=== PATIENT | male | born 1940 | race Caucasian/White ===

== ENCOUNTER → 2018-10-14 16:18 | Outpatient (CLI) | payer MEDICARE, SELFPAY | PROVIDERS: PCP Internal Medicine; Visit Provider Internal Medicine | DX: R41.0 Disorientation, unspecified (principal); Z53.9 Procedure and treatment not carried out, unspecified reason ==

== ENCOUNTER 2018-11-05 09:05 | Observation (INO) | payer MEDICARE, OTHER, SELFPAY ==
[2018-11-05] VITALS (12 sets, daily range): BP systolic 107–174; BP diastolic 66–133; PULSE 89–122; RESP 15–22; TEMP 36.5–37.2; O2SAT 94–100; BMI 22.6
--- NOTE | 2018-11-05 09:15 | DI.CT.S_ITS ---
PROCEDURE: CT HEAD/BRAIN WO CON INDICATIONS: speech difficulty TECHNIQUE: Noncontrast 4.5 mm thick angled axial sections acquired from the foramen magnum to the vertex, with coronal and sagittal reformats. For radiation dose reduction, the following was used: automated exposure control, adjustment of mA and/or kV according to patient size. COMPARISON: None. FINDINGS: Image quality: Diagnostic. CSF spaces: Basal cisterns are patent. No extra-axial fluid collections. Marked enlargement of the ventricles is identified, which is more pronounced than the degree of parenchymal volume loss. There may be an arachnoid cyst along the central aspect of the posterior fossa. Brain: No midline shift. No intracranial masses or hemorrhage. Joiner-white matter interface is normal. Small foci of low attenuation are seen within the periventricular white matter of the supratentorial brain. A chronic area of ischemia involving the upper aspect of the right cerebellum appears to be present (image 56, series 4 and image 12, series 2). Skull and face: Calvarium and visualized facial bones are intact, without suspicious lesions. Sinuses: Visualized sinuses and mastoids are clear. IMPRESSION: 1. No acute intracranial hemorrhage. 2. Prominent enlargement of the ventricles is suspicious for normal pressure hydrocephalus and clinical correlation is recommended. 3. Mild chronic small vessel ischemic changes and mild parenchymal volume loss. Dictated by: Michael Lowery M.D. on 11/05/2018 at 8:39 Approved by: Michael Lowery M.D. on 11/05/2018 at 8:41
--- NOTE | 2018-11-05 09:20 | ED.NEUROSD ---
HPI - Neuro Symptoms/Deficit General Chief Complaint: Neuro Symptoms/Deficit Stated Complaint: mild stroke ? Time Seen by Provider: 11/05/18 09:08 Source: patient Mode of arrival: ambulatory Limitations: no limitations History of Present Illness HPI Narrative: Patient is a 78-year-old male with history of atrial fibrillation and mechanical valve on Coumadin presenting with symptoms concerning for stroke. He states he has had difficulty speaking since he woke up this morning around 7:00 a.m.. He lives with his who suffers from dementia his son checks in on him frequently. He was there last night and said he seemed normal however this morning he can tell that his speech is off. No weakness numbness or tingling. He does have a mild left facial droop. Related Data Home Medications Medication Instructions Recorded Confirmed carvedilol 25 mg tablet 25 mg PO BID 11/03/18 11/05/18 furosemide 20 mg tablet 20 mg PO .three times a week tab 11/03/18 11/05/18 lisinopril 2.5 mg tablet 2.5 mg PO DAILY 11/03/18 11/05/18 spironolactone 25 mg tablet 12.5 mg PO DAILY tab 11/03/18 11/05/18 warfarin 5 mg tablet 5 mg PO DAILY 11/03/18 11/05/18 Allergies Allergy/AdvReac Type Severity Reaction Status Date / Time No Known Drug Allergies Allergy Unverified 11/03/18 10:38 Review of Systems Review of Systems ROS Unobtainable: All systems reviewed & are unremarkable except as noted in HPI and below Constitutional Constitutional: Denies chills, Denies fever(s), Denies frequent falls, Denies lethargy and Denies weakness Eyes Eyes: Denies change in vision, Denies eye discharge, Denies irritation and Denies loss of vision Cardiovascular Cardiovascular: Denies chest pain, Denies irregular heart rhythm, Denies lightheadedness, Denies palpitations, Denies dyspnea, Denies dyspnea on exertion and Denies orthopnea Respiratory Respiratory: Denies cough, Denies dyspnea, Denies dyspnea on exertion and Denies wheezing Gastrointestinal Gastrointestinal: Denies abdominal pain, Denies change in bowel habits, Denies diarrhea, Denies nausea and Denies vomiting Genitourinary Genitourinary: Denies hematuria, Denies flank pain, Denies urinary incontinence and Denies urinary urgency Musculoskeletal Musculoskeletal: Denies back pain, Denies muscle weakness, Denies numbness and Denies tingling Neurologic Neurologic: Reports as per HPI, Reports abnormal speech, Denies frequent falls, Denies loss of vision, Denies numbness, Denies tingling and Denies weakness Endocrine Endocrine: Denies palpitations Allergic/Immunologic Allergic/Immunologic: Denies wheezing [facility] Social History Smoking Status: Never smoker Exam Initial Vital Signs Initial Vital Signs: Vital Signs Temperature 99 F 11/05/18 09:05 Pulse Rate 122 H 11/05/18 09:05 Respiratory Rate 18 11/05/18 09:05 Blood Pressure 148/98 H 11/05/18 09:05 Pulse Oximetry 100 11/05/18 09:05 GENERAL: Alert pleasant elderly male no acute distress HEENT: Head atraumatic,EOMI, pupils reactive, mild left facial droop CARDIOVASCULAR: Regular rate and rhythm without murmurs, rubs or gallops. RESPIRATORY: Breath sounds equal bilaterally, no wheezes rales or rhonchi. ABDOMEN: Soft, nontender. Normoactive bowel sounds all 4 quadrants. No guarding or rebound. EXTREMITIES: Normal range of motion, no clubbing or edema. Neurovascularly intact NEUROLOGICAL: Alert and oriented x4.Normal gait and speech. Cranial nerves II through XII grossly intact. Good [id number], good [id number], strength equal bilaterally, mild slurring of speech noted, sensation in tact to soft touch bilaterally, no visual changes, mild left SKIN: Warm, dry, no laceration, no petechiae, no rashes or lesions. Scores NIH Stroke Scale Level of Conciousness: Alert, keenly responsive Ask month/age: Answers one question correctly, intubated follow commands Open/close eyes, close hand: Performs both tasks correctly Best gaze horizontal: Normal Visual hunter: No visual loss Facial palsy: Minor paralysis, flattened nasolabial fold, asymmetry on smiling Left arm drift: No drift for full 10 sec Right arm drift: No drift for full 10 sec Left leg drift: No drift for full 10 sec Right leg drift: No drift for full 10 sec Limb ataxia: Absent Sensory on face/arms/legs: Normal, no sensory loss Best language: No aphasia, normal Dysarthria: Mild to mod,some slurring Extinction or inattention: No abnormality Total NIH Stroke scale score: 3 Course Orders Ordered: ED Orders 11/05/18 09:11 EKG-12 Lead Stat 11/05/18 09:15 CT head/brain wo con Stat Complete Blood Count AUTO DIFF Stat Comprehensive Metabolic Panel Stat Partial Thromboplastin Time Stat Prothrombin Time INR Stat Troponin I Stat Urine Drug Screen, Rapid Stat 11/05/18 10:21 XR chest 1V Stat Sodium Chloride (Normal Saline 0.9%) 1,000 mls @ 150 mls/hr IV CONT OSCAR Last Admin: 11/05/18 10:27 Dose: 150 mls/hr Documented by: BTONER Vital Signs Vital signs: Vital Signs - 8 hr 11/05/18 09:05 11/05/18 09:30 11/05/18 10:00 Temperature 99 F Pulse Rate 122 H 104 H 102 H Respiratory Rate 18 22 21 Blood Pressure 148/98 H Blood Pressure [Left Arm] 151/133 H 174/114 H Pulse Oximetry 100 97 98 11/05/18 10:30 Temperature Pulse Rate 100 H Respiratory Rate 21 Blood Pressure Blood Pressure [Left Arm] 109/76 Pulse Oximetry 98 MDM - Neuro Symptoms/Deficit Lab Data Attestation: I reviewed the patient's lab results. Result diagrams: 11/05/18 09:15 11/05/18 09:15 Labs: Lab Results 11/05/18 11/05/18 11/05/18 Range/Units 09:15 09:15 09:15 WBC 6.9 (4.5-11.0) X10^3/uL RBC 4.06 L (4.5-5.9) X10^6/uL Hgb 12.3 L (13.5-17.5) g/dL Hct 36.6 L (41-53) % MCV 90.3 (80-100) fL MCH 30.3 (26-34) PG MCHC 33.6 (30-36) % RDW 15.1 H (11.6-14.8) % Plt Count 259 (150-400) X10^3/uL Neut % (Auto) 63.6 (50-75) % Lymph % (Auto) 17.3 L (25-40) % [place] % (Auto) 10.1 (3-14) % Eos % (Auto) 7.7 H (2-4) % Baso % (Auto) 1.3 (0-2) % Neut # (Auto) 4400 (5984-6151) /uL Lymph # (Auto) 1200 (4641-3269) /uL [place] # (Auto) 700 (0-900) /uL Eos # (Auto) 500 H (0-450) /uL Baso # (Auto) 100 (0-100) /uL PT 32.5 H (10.1-12.7) SECONDS INR 2.8 H (0.9-1.3) APTT 44 H (26.4-36.2) SECONDS Sodium 137 (137-145) mmol/L Potassium 4.2 (3.4-5.1) mmol/L Chloride 98 (98-107) mmol/L Carbon Dioxide 27 (22-32) mmol/L BUN 24 H (9-20) mg/dL Creatinine 1.10 (0.66-1.25) mg/dL Estimated GFR > 60.0 (>60) mL/min BUN/Creatinine Ratio 21.8 (6-22) Glucose 116 H (80-110) mg/dL Calcium 9.7 (8.4-10.2) mg/dL Total Bilirubin 1.0 (0.2-1.3) mg/dL AST 29 (17-59) IU/L ALT 19 L (21-72) IU/L Alkaline Phosphatase 71 (38-126) U/L Troponin I < 0.012 (0.01-0.034) ng/mL Total Protein 8.3 H (6.3-8.2) g/dL Albumin 4.4 (3.5-5.0) g/dL Globulin 3.9 (1.7-4.1) g/dL Albumin/Globulin Ratio 1.1 (1.0-2.8) Urine Dip Bedside Urine Glucose Negative Bedside Urine Bilirubin - Negative Bedside Urine Ketone - Negative Urine Specific [place] 1.015 Bedside Urine Occult Blood - Negative Bedside Urine pH 6.5 Bedside Urine Protein - Negative Bedside Urine Urobilinogen - Negative Bedside Urine Nitrite - Negative Bedside Urine Leukocytes - Negative Esterase Imaging Data CT scan - head: Radiologist's impression: PROCEDURE: CT HEAD/BRAIN WO CON INDICATIONS: speech difficulty TECHNIQUE: Noncontrast 4.5 mm thick angled axial sections acquired from the foramen magnum to the vertex, with coronal and sagittal reformats. For radiation dose reduction, the following was used: automated exposure control, adjustment of mA and/or kV according to patient size. COMPARISON: None. FINDINGS: Image quality: Diagnostic. CSF spaces: Basal cisterns are patent. No extra-axial fluid collections. Marked enlargement of the ventricles is identified, which is more pronounced than the degree of parenchymal volume loss. There may be an arachnoid cyst along the central aspect of the posterior fossa. Brain: No midline shift. No intracranial masses or hemorrhage. Joiner-white matter interface is normal. Small foci of low attenuation are seen within the periventricular white matter of the supratentorial brain. A chronic area of ischemia involving the upper aspect of the right cerebellum appears to be present (image 56, series 4 and image 12, series 2). Skull and face: Calvarium and visualized facial bones are intact, without suspicious lesions. Sinuses: Visualized sinuses and mastoids are clear. IMPRESSION: 1. No acute intracranial hemorrhage. 2. Prominent enlargement of the ventricles is suspicious for normal pressure hydrocephalus and clinical correlation is recommended. 3. Mild chronic small vessel ischemic changes and mild parenchymal volume loss. Dictated by: Michael Lowery M.D. on 11/05/2018 at 8:39 Approved by: Michael Lowery M.D. on 11/05/2018 at 8:41 Chest x-ray: Radiologist's impression: PROCEDURE: XR CHEST 1V INDICATIONS: cva TECHNIQUE: One view of the chest was acquired. COMPARISON: None. FINDINGS: Surgical changes and devices: Median sternotomy changes are present with associated heart valve replacement Lungs and pleura: Vertical area of mild pulmonary consolidation is identified adjacent to the left heart border. No large area of consolidation is evident. Mild thickening of the minor fissure on the right is present. There is no significant pleural effusion. No definite pneumothorax is evident. Mediastinum: Mediastinal contours appear normal. The heart appears to be enlarged. There is aortic atherosclerosis. Bones and chest wall: No suspicious bony lesions. Overlying soft tissues appear unremarkable. IMPRESSION: 1. Cardiomegaly without overt heart failure. 2. Probable atelectasis within the medial left base. Please correlate clinically to exclude pneumonia. Dictated by: Michael Lowery M.D. on 11/05/2018 at 9:46 ECG Data Attestation: I personally reviewed and interpreted this ECG as follows: Prior ECG tracings: not available for review Interpretation: AFib rate [address] changes no T-wave inversions no priors to compare MDM Narrative Medical decision making narrative: Patient has signs and symptoms concerning for stroke Coumadin. He is not a candidate for an MRI due to mechanical valve. Head CT is negative for any hemorrhagic stroke. Dr. Montes updated patient's symptoms and test results agrees with observation. Discharge Plan Departure Patient Disposition: Admitted as Observation Clinical Impression: Cerebrovascular accident Qualifiers: CVA mechanism: unspecified Qualified Code(s): I63.9 - Cerebral infarction, unspecified Discharge Date/Time: 11/05/18 11:35 Admit Date/Time: 11/05/18 11:34 Admit Provider: Evie Montes
[2018-11-05 09:25] LABS: Add Manual Diff / Slide Review NO; Basophils Absolute Auto 100 /uL (0-100); Basophils Percent Auto 1.3 % (0-2); Eosinophils Absolute Auto 500 /uL (0-450); Eosinophils Percent Auto 7.7 % (2-4); Hematocrit 36.6 % (41-53); Hemoglobin 12.3 g/dL (13.5-17.5); Lymphocytes Absolute Auto 1200 /uL (1100-4500); Lymphocytes Percent Auto 17.3 % (25-40); Mean Corpuscular HGB Conc 33.6 % (30-36); Mean Corpuscular Hemoglobin 30.3 PG (26-34); Mean Corpuscular Volume 90.3 fL (80-100); Monocytes Absolute Auto 700 /uL (0-900); Monocytes Percent Auto 10.1 % (3-14); Neutrophils Absolute Auto 4400 /uL (1500-7000); Neutrophils Percent Auto 63.6 % (50-75); Platelet Count 259 X10^3/uL (150-400); Red Blood Cell Count 4.06 X10^6/uL (4.5-5.9); Red Cell Distribution Width 15.1 % (11.6-14.8); White Blood Cell Count 6.9 X10^3/uL (4.5-11.0)
[2018-11-05 09:30] LABS: INR 2.8 (0.9-1.3); Prothrombin Time 32.5 SECONDS (10.1-12.7)
[2018-11-05 09:32] LABS: PTT Partial Thromboplastin Tim 44 SECONDS (26.4-36.2)
[2018-11-05 09:34] LABS: Alanine Aminotransferase 19 IU/L (21-72); Albumin 4.4 g/dL (3.5-5.0); Albumin Globulin Ratio 1.1 (1.0-2.8); Alkaline Phosphatase 71 U/L (38-126); Aspartate Aminotransferase 29 IU/L (17-59); BUN Creatinine Ratio 21.8 (6-22); Blood Urea Nitrogen 24 mg/dL (9-20); Calcium 9.7 mg/dL (8.4-10.2); Carbon Dioxide 27 mmol/L (22-32); Chloride 98 mmol/L (98-107); Estimated Glomerular Filt Rate > 60.0 mL/min (>60); Globulin 3.9 g/dL (1.7-4.1); Glucose 116 mg/dL (80-110); HEMOLYSIS < 15 (0-50); Potassium 4.2 mmol/L (3.4-5.1); Sodium 137 mmol/L (137-145); Total Protein 8.3 g/dL (6.3-8.2)
[2018-11-05 09:45] LABS: Troponin I < 0.012 ng/mL (0.01-0.034)
--- NOTE | 2018-11-05 10:21 | DI.RAD.S_ITS ---
PROCEDURE: XR CHEST 1V INDICATIONS: cva TECHNIQUE: One view of the chest was acquired. COMPARISON: None. FINDINGS: Surgical changes and devices: Median sternotomy changes are present with associated heart valve replacement Lungs and pleura: Vertical area of mild pulmonary consolidation is identified adjacent to the left heart border. No large area of consolidation is evident. Mild thickening of the minor fissure on the right is present. There is no significant pleural effusion. No definite pneumothorax is evident. Mediastinum: Mediastinal contours appear normal. The heart appears to be enlarged. There is aortic atherosclerosis. Bones and chest wall: No suspicious bony lesions. Overlying soft tissues appear unremarkable. IMPRESSION: 1. Cardiomegaly without overt heart failure. 2. Probable atelectasis within the medial left base. Please correlate clinically to exclude pneumonia. Dictated by: Michael Lowery M.D. on 11/05/2018 at 9:46 Approved by: Michael Lowery M.D. on 11/05/2018 at 9:53
[2018-11-05] MEDS: SODIUM CHLORIDE 0.9% 1,000 ML 150 ML IV (10:27)
--- NOTE | 2018-11-05 12:36 | PC.NURSE ---
1205 Pt arrived from ED via stretcher. Pt is awake.\, alert, oriented to name , place, month. Pt has IVF infusing to R AC site. Pt speech is slightly slurred with some words. Pt is aware of his forgetfulness & slurred speech. Pt is calm, cooperative. strong rotary drier & pedal pushes. Pt s tongues goes to the Left side, mouth droop slight to right side. Pt usew a cane, has a very unsteady gait, risk of falls. 1220 Ptb voided per urinal with assist to stand, urine clear yello. IVF: NS 150 ml/hr . Pt denies Pain. Pts son Dirk at bedside, states he is the POA, Pt is a full code. Pt on Tele, ht rate 97-102.
--- NOTE | 2018-11-05 14:42 | P.HP_ITS ---
History of Present Illness History of Present Illness Date Patient Seen: 11/05/18 Chief complaint: mild stroke ? Narrative: The patient is a 78-year-old male with a history of congestive heart failure, paroxysmal atrial fibrillation, aortic valve replacement who lives at home with his who has dementia. The patient has 3 sons in the area who check on him daily. The patient got up this morning and noted his speech was abnormal. When his son appeared he was also noticing that his father speech was abnormal. Speech was somewhat garbled and difficult to understand. The patient had no weakness in the arms or legs. He denies any headache blurred vision or double vision. The son brought the patient into the emergency room for evaluation. In the emergency room his NIH SS score was 3. Patient by report had an episode 6 weeks ago where he became confused, had some mild slurring of his speech, all symptoms of which resolved after 10 minutes. He was seen by his primary care physician Dr. garcia evaluated and no further workup was indicated. Patient does have known paroxysmal atrial fibrillation, however according to the son he was in a regular rhythm most recently. He currently is undergoing a workup for possible obstructive sleep apnea. He has scheduled for sleep study next week. Patient has been noted to be hypoxic at night. In addition the patient has pulmonary edema. He does take Lasix 3 times weekly. Currently the patient is without complaints. He does have intermittent shortness of breath. He denies any chest pain. The patient is admitted to the hospital at this time for evaluation of possible CVA versus TIA. Patient History Medical History (Updated 11/05/18 @ 14:46 by Evie Montes MD) CAD (coronary artery disease) (Acute) History of implanted metallic device (Acute) Paroxysmal atrial fibrillation (Acute) Surgical History (Updated 11/05/18 @ 14:47 by Evie Montes MD) Hx of CABG (Acute) Family History (Updated 11/05/18 @ 14:47 by Evie Montes MD) Father Stroke Social History household members: spouse Smoking Status: Never smoker Family & Social History Family History (Updated 11/05/18 @ 14:47 by Evie Montes MD) Father Stroke Social History: household members spouse Prior Living Arrangements House Safety & Behavioral: Feels Safe in Current Yes Environment Been Physically Hurt or No Threatened By a Person Suicidal Ideation Description None Suicide Plan Description No Plan Tobacco & Substance use: Smoking Status Never smoker alcohol intake frequency other Substance Use Type does not use Meds Home Medications and Allergies Home Medications Medication Instructions Recorded Confirmed Type carvedilol 25 mg tablet 25 mg PO BID 11/03/18 11/05/18 History furosemide 20 mg tablet 20 mg PO .three times a week tab 11/03/18 11/05/18 History lisinopril 2.5 mg tablet 2.5 mg PO DAILY 11/03/18 11/05/18 History spironolactone 25 mg tablet 12.5 mg PO DAILY tab 11/03/18 11/05/18 History warfarin 5 mg tablet 5 mg PO DAILY 11/03/18 11/05/18 History Allergies Allergy/AdvReac Type Severity Reaction Status Date / Time No Known Drug Allergies Allergy Unverified 11/03/18 10:38 Review of Systems Review of Systems ROS Unobtainable: All systems reviewed & are unremarkable except as noted in HPI and below Exam Vital Signs (past 8 hours): - 11/05/18 09:05 11/05/18 09:30 11/05/18 10:00 Temperature 99 F Pulse Rate 122 H 104 H 102 H Respiratory Rate 18 22 21 Blood Pressure 148/98 H Blood Pressure [Left Arm] 151/133 H 174/114 H Pulse Oximetry 100 97 98 11/05/18 10:30 11/05/18 11:38 11/05/18 12:05 Temperature 98 F Pulse Rate 100 H 103 H 91 H Respiratory Rate 21 17 19 Blood Pressure 115/78 Blood Pressure [Left Arm] 109/76 107/74 Pulse Oximetry 98 94 98 Oxygen Delivery Method Room Air Narrative Exam Narrative: Pleasant elderly male resting comfortably in no obvious distress. Speech is dysarthric, NIH stroke scale 3 HEENT: Normocephalic atraumatic, sclera mildly icteric, extraocular muscles are intact, visual hunter normal to confrontation Neck is supple, Lungs: Clear to auscultation Cardiac exam: Irregularly irregular normal S1-S2 with a 3/6 systolic ejection murmur positive click Abdomen: Soft nontender nondistended Extremities: No edema Neuro exam: NIH stroke scale of 3, patient has mild left facial droop, dysarthria, no aphasia, strength is symmetric and equal, sensation is grossly intact, reflexes are brisk and equal, gait is not assessed Skin exam: No lesions noted Psychiatric exam: Patient is awake and appropriate Objective Labs Result Diagrams: 11/05/18 09:15 11/05/18 09:15 Labs: Laboratory Results - last 24 hr 11/05/18 11/05/18 11/05/18 09:15 09:15 09:15 WBC 6.9 RBC 4.06 L Hgb 12.3 L Hct 36.6 L MCV 90.3 MCH 30.3 MCHC 33.6 RDW 15.1 H Plt Count 259 Neut % (Auto) 63.6 Lymph % (Auto) 17.3 L [place] % (Auto) 10.1 Eos % (Auto) 7.7 H Baso % (Auto) 1.3 Neut # (Auto) 4400 Lymph # (Auto) 1200 [place] # (Auto) 700 Eos # (Auto) 500 H Baso # (Auto) 100 PT 32.5 H INR 2.8 H APTT 44 H Sodium 137 Potassium 4.2 Chloride 98 Carbon Dioxide 27 BUN 24 H Creatinine 1.10 Estimated GFR > 60.0 BUN/Creatinine Ratio 21.8 Glucose 116 H Calcium 9.7 Total Bilirubin 1.0 AST 29 ALT 19 L Alkaline Phosphatase 71 Troponin I < 0.012 Total Protein 8.3 H Albumin 4.4 Globulin 3.9 Albumin/Globulin Ratio 1.1 Assessment & Plan Assessment & Plan narrative: Impression 1. 78-year-old male with a history of mechanical valve replacement on Coumadin who presents to the hospital with abrupt onset of speech abnormalities. Patient has mild dysarthria but no evidence of dysphagia. Given his history of paroxysmal atrial fibrillation, mechanical valve replacement he is at high risk for embolic CVA. The patient cannot have an MRI given his mechanical valve. Would repeat head CT in 24-48 hours to evaluate for possible stroke. As the etiology is most likely involve who will defer carotid Doppler or CT angio of the neck. Patient will continue on Coumadin as there is no evidence of bleed on head CT. Will arrange for physical therapy occupational therapy and speech pathology consultation. Will start the patient on low-dose aspirin at 81 mg daily 2. Paroxysmal atrial fibrillation, currently in atrial fibrillation with a rate controlled. Patient has intermittently been in and out of AFib. For now as his rate is controlled will continue his Coreg. 3. Mechanical valve, continue Coumadin goal INR 2.5-3.5 4. Coronary disease, remote history of coronary artery bypass graft 5. 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 No evidence of heart failure. Given the patient most likely embolic event will obtain a cardiac echo to evaluate LV function and valvular status. Will continue Coreg furosemide lisinopril wan nolactone and Coumadin. Patient is a full code will note that his record accordingly. Anticipate di scharge home within 48 hours. Quality VTE Deep Vein Thrombosis/Pulmonary Embolism Present on Admission: No
--- NOTE | 2018-11-05 14:54 | DI.ECHO.S_ITS ---
[facility] +---------+ : : [address] : [place] [address] : : : : [id number] : : : : Phone: [phone]+ Echocardiogram Report + + :Name: JASMYN MCDANIEL Study Date: 11/07/2018 Height: 69 in : :[facility] Weight: 154 lb: : Gender: Male BSA: 1.8 m2 : :: 1940 Age: 78 yrs : :Reason For Study: CVA : : Performed By: Raina Still : :Referring: BLAISE JOSUE : + + Interpretation Summary Afib withheart rate 82-100 bpm. Normal LV size and wall thicknes. There is global hypokinesis. EF is estimated at 35-40%. There is severe LA enlargement; moderate-severe RA enlargement. Mitral valve leaflets are moderately calcificed. There is moderate MAC with moderate associated central MR. Aortic valve is replaced with a mechanical prosthesis; it is functioning normally. No evidence of PFO based on agitated saline study. Mildly dilated ascending aorta (measuring 4.4 cm diameter). Compared to prior study 06/19/2015 afib is new. cardiomyopathy is new. EF is down from 60-65% to 35-40%. Procedure: A two-dimensional transthoracic echocardiogram with color flow and Doppler was performed. The study quality was technically adequate. Comparison is made with the echocardiogram of 06-19-15. The patient was in atrial fibrillation with heart rates between 82-100 bpm during the exam. Left Ventricle: The left ventricle is normal in size. There is normal left ventricular wall thickness. The ejection fraction is estimated to be 35-40%. Diastolic function could not be accurately assessed due to atrial fibrillation. Right Ventricle: The right ventricle is mild to moderately dilated. Right ventricular systolic function is moderately reduced. Atria: The left atrium is severely dilated. The right atrium is moderate to severely dilated. Injection of contrast documented no interatrial shunt. Mitral Valve: The mitral valve leaflets are moderately calcified. There is moderate mitral annular calcification. There is moderate mitral regurgitation. Aortic Valve: There is a mechanical aortic valve. The prosthetic aortic valve is well-seated. There is trace aortic regurgitation. Tricuspid Valve: The tricuspid valve is normal in structure and function. There is trace tricuspid regurgitation. The right ventricular systolic pressure is estimated to be at least 28 mmHg based on an estimated right atrial pressure of 3 mm Hg. Pulmonic Valve: The pulmonic valve is not well seen, but is grossly normal. There is mild pulmonic regurgitation. Great Vessels: The aortic root is mildly dilated. The ascending aorta is mild-moderately enlarged. This is unchanged compared to the previous study. Inspiratory collapse cannot be assessed because of mechanical ventilation, thus CVP cannot be estimated.. Pericardium/ Pleura There is no pericardial effusion. There is no pleural effusion. MMode/2D Measurements & Calculations LVIDd: 4.4 cm LVOT diam: 2.3 cm LVIDs: 3.4 cm Ao root diam: 4.0 cm FS: 23.2 % Aortic Jxn: 3.3 cm EPSS: 2.1 cm asc Aorta Diam: 4.4 cm IVSd: 1.1 cm Ao Arch Diam (Prox Trans): 3.6 cm LVPWd: 0.66 cm LV leonardo. diameter/BSA (cm/m^2): 2.4 LV sys. diameter/BSA (cm/m^2): 1.8 LA dimension: 4.4 cm RA long axis: 6.0 cm LA A2 area: 42.2 cm2 RA area: 25.2 cm2 LA A4 area: 31.9 cm2 RA vol: 90.1 ml LA length (vol): 6.8 cm RA : 48.8 ml/m2 LA vol: 167.2 ml IVC diam: 1.9 cm LA vol index: 90.5 ml/m2 RVDd major: 6.1 cm RVD1 (basal): 4.2 cm RVD2 (mid): 3.8 cm Doppler Measurements & Calculations Ao V2 max: 137.1 cm/sec LVOT Max Alfred: 60.0 cm/sec Ao V2 mean: 78.8 cm/sec LV V1 max P.4 mmHg Ao max P.5 mmHg LV V1 VTI: 11.8 cm Ao mean P.2 mmHg NATHALIE(I,D): 2.0 cm2 Ao V2 VTI: 24.5 cm NATHALIE(V,D): 1.8 cm2 sev ratio: 0.48 NATHALIE indexed to BSA (cm^2/m^2): 1.1 Med Peak E' Alfred: 2.5 cm/sec TR max alfred: 248.6 cm/sec Lat Peak E' Alfred: 3.4 cm/sec TR max P.7 mmHg MV P1/2t: 107.9 msec PA V2 max: 50.1 cm/sec MVA(VTI): 1.1 cm2 PA V2 mean: 36.3 cm/sec PA mean P.58 mmHg PA Accel Time: 0.11 sec MV V2 mean: 111.2 cm/sec MV P1/2t max alfred: 196.3 cm/sec MV mean P.2 mmHg MVA(P1/2t): 2.0 cm2 MV V2 VTI: 45.6 cm SV(LVOT): 48.7 ml Electronically signed by: Melanie Hubbard M.D. on Reading Physician:11/07/2018 02:17 PM
[2018-11-05 15:29] LABS: PTT Partial Thromboplastin Tim 44 SECONDS (26.4-36.2)
[2018-11-05 15:49] LABS: INR 2.9 (0.9-1.3); Prothrombin Time 34.5 SECONDS (10.1-12.7)
[2018-11-05 17:13] LABS: Urine Amphetamines Negative (Negative); Urine Barbiturates Negative (Negative); Urine Benzodiazepines Negative (Negative); Urine Cocaine Negative (Negative); Urine MDMA Negative (Negative); Urine Methadone Negative (Negative); Urine Methamphetamines Negative (Negative); Urine Morphine/Opi cutoff 2000 Negative (Negative); Urine Oxycodone Negative (Negative); Urine Phencyclidine Negative (Negative); Urine Tetrahydrocannabinol Negative (Negative); Urine Tricyclic Antidepressant Negative (Negative)
--- NOTE | 2018-11-05 17:43 | PC.NURSE ---
Assumed care of pt at 1500. Pt resting in bed during bedside hand-off. Denies pain. Slurred speech noted. Pt up to chair for dinner. Coughing noted with eating, enc pt to double swallow and alternate drinks with food and remain upright after eating for aspiration prevention. Pt states he doesn't remember coughing prior to coming to the hospital. Using urinal to void. Returned to bed after dinner. Bed alarm placed on. Call light within reach.
[2018-11-05] MEDS: SENNOSIDES 8.6 MG TABLET 17.2 MG PO (21:24)
[2018-11-05] MEDS: DOCUSATE 100 MG CAPSULE PO (21:24)
[2018-11-05] MEDS: CARVEDILOL 25 MG TABLET PO (21:29)
[2018-11-06] VITALS (7 sets, daily range): BP systolic 109–129; BP diastolic 64–86; PULSE 93–103; RESP 16–18; TEMP 36.5–36.8; O2SAT 95–99
[2018-11-06 06:28] LABS: Cholesterol 195 mg/dL (140-199); HDL Cholesterol 32 mg/dL (40-60); LDL Cholesterol Calculated 140 mg/dL (<100); Triglycerides 114 mg/dL (35-150)
--- NOTE | 2018-11-06 06:56 | PC.NURSE ---
Pt with no further neuro changes overnight. NIH score of 4. Pt unable to repeat back one of the words mama. Speech slurred, but unchanged from baseline assessment during bedside report. Monitoring for neuro CVA changes.
--- NOTE | 2018-11-06 08:05 | P.PN_ITS ---
Subjective Subjective Date Patient Seen: 11/06/18 Interval history: He is seen today to follow-up his atrial fibrillation, coronary artery disease, new stroke, cardiomyopathy. 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 His speech rapidly becomes more slurred but is not slurred when he 1st starts talking. This is a great improvement. His tongue deviates very far to the left. He is undergoing PT/OT/speech evaluations today. His LDL is 140 with cholesterol of 195. Exam Vital Signs (past 8 hours): - 11/06/18 03:26 Temperature 97.7 F Pulse Rate 93 H Respiratory Rate 18 Blood Pressure 109/64 Pulse Oximetry 97 Oxygen Delivery Method Room Air Oxygen Flow Rate 0 Narrative Exam Narrative: He is alert and oriented x3. He is in no apparent distress. Heart is irregularly irregular with a mechanical click. Lungs are clear to auscultation bilaterally. Extremities have no ankle edema. Skin with xerosis on both legs. Neuro exam tongue deviates to the left. Speech is slurred. No facial droop visible. Equal last pattern grader strength. Equal lower extremity strength. He is able to walk and balance with PT assistance quite well. Objective Labs Result Diagrams: 11/05/18 09:15 11/05/18 09:15 Labs: Laboratory Results - last 24 hr 11/05/18 11/05/18 11/05/18 09:15 09:15 09:15 WBC 6.9 RBC 4.06 L Hgb 12.3 L Hct 36.6 L MCV 90.3 MCH 30.3 MCHC 33.6 RDW 15.1 H Plt Count 259 Neut % (Auto) 63.6 Lymph % (Auto) 17.3 L Anderson % (Auto) 10.1 Eos % (Auto) 7.7 H Baso % (Auto) 1.3 Neut # (Auto) 4400 Lymph # (Auto) 1200 Anderson # (Auto) 700 Eos # (Auto) 500 H Baso # (Auto) 100 PT 32.5 H INR 2.8 H APTT 44 H Sodium 137 Potassium 4.2 Chloride 98 Carbon Dioxide 27 BUN 24 H Creatinine 1.10 Estimated GFR > 60.0 BUN/Creatinine Ratio 21.8 Glucose 116 H Calcium 9.7 Total Bilirubin 1.0 AST 29 ALT 19 L Alkaline Phosphatase 71 Troponin I < 0.012 Total Protein 8.3 H Albumin 4.4 Globulin 3.9 Albumin/Globulin Ratio 1.1 Triglycerides Cholesterol LDL Cholesterol, Calc HDL Cholesterol Urine Opiates Screen Ur Oxycodone Screen Urine Methadone Screen Ur Barbiturates Screen U Tricyclic Antidepress Ur Phencyclidine Scrn Ur Amphetamines Screen U Methamphetamines Scrn Ur MDMA Scrn (Ecstasy) U Benzodiazepines Scrn Urine Cocaine Screen U Marijuana (THC) Screen 11/05/18 11/05/18 11/05/18 15:16 15:16 16:58 WBC RBC Hgb Hct MCV MCH MCHC RDW Plt Count Neut % (Auto) Lymph % (Auto) Anderson % (Auto) Eos % (Auto) Baso % (Auto) Neut # (Auto) Lymph # (Auto) Anderson # (Auto) Eos # (Auto) Baso # (Auto) PT 34.5 H INR 2.9 H APTT 44 H Sodium Potassium Chloride Carbon Dioxide BUN Creatinine Estimated GFR BUN/Creatinine Ratio Glucose Calcium Total Bilirubin AST ALT Alkaline Phosphatase Troponin I Total Protein Albumin Globulin Albumin/Globulin Ratio Triglycerides Cholesterol LDL Cholesterol, Calc HDL Cholesterol Urine Opiates Screen Negative Ur Oxycodone Screen Negative Urine Methadone Screen Negative Ur Barbiturates Screen Negative U Tricyclic Antidepress Negative Ur Phencyclidine Scrn Negative Ur Amphetamines Screen Negative U Methamphetamines Scrn Negative Ur MDMA Scrn (Ecstasy) Negative U Benzodiazepines Scrn Negative Urine Cocaine Screen Negative U Marijuana (THC) Screen Negative 11/06/18 05:50 WBC RBC Hgb Hct MCV MCH MCHC RDW Plt Count Neut % (Auto) Lymph % (Auto) Anderson % (Auto) Eos % (Auto) Baso % (Auto) Neut # (Auto) Lymph # (Auto) Anderson # (Auto) Eos # (Auto) Baso # (Auto) PT INR APTT Sodium Potassium Chloride Carbon Dioxide BUN Creatinine Estimated GFR BUN/Creatinine Ratio Glucose Calcium Total Bilirubin AST ALT Alkaline Phosphatase Troponin I Total Protein Albumin Globulin Albumin/Globulin Ratio Triglycerides 114 Cholesterol 195 LDL Cholesterol, Calc 140 H HDL Cholesterol 32 L Urine Opiates Screen Ur Oxycodone Screen Urine Methadone Screen Ur Barbiturates Screen U Tricyclic Antidepress Ur Phencyclidine Scrn Ur Amphetamines Screen U Methamphetamines Scrn Ur MDMA Scrn (Ecstasy) U Benzodiazepines Scrn Urine Cocaine Screen U Marijuana (THC) Screen Assessment & Plan Assessment & Plan narrative: 1. 78-year-old male with a history of mechanical valve replacement on Coumadin who presents to the hospital with abrupt onset of speech abnormalities. Patient has mild dysarthria but no evidence of dysphagia. Given his history of paroxysmal atrial fibrillation, mechanical valve replacement he is at high risk for embolic CVA. The patient cannot have an MRI given his mechanical valve. Will repeat CT brain tomorrow to evaluate for possible stroke. As the etiology is most likely embolic we will defer carotid Doppler or CT angio of the neck. Patient will continue on Coumadin as there is no evidence of bleed on head CT. Will arrange for physical therapy occupational therapy and speech pathology consultation. Will start the patient on low-dose aspirin at 81 mg daily 2. Paroxysmal atrial fibrillation, currently in atrial fibrillation with a rate controlled. Patient has intermittently been in and out of AFib. For now as his rate is controlled will continue his Coreg. 3. Mechanical valve, continue Coumadin goal INR 2.5-3.5 4. Coronary disease, remote history of coronary artery bypass graft 5. 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 No evidence of heart failure. Given the patient most likely embolic event will obtain a cardiac echo to evaluate LV fu nction and valvular status. Will continue Coreg furosemide lisinopril spironolactone and Coumadin. 6. Hyperlipidemia. Total cholesterol of 195 with LDL of 140. Begin atorvastatin. Patient is a full code. Anticipate discharge home within 48 hours. Quality VTE Deep Vein Thrombosis/Pulmonary Embolism Present on Admission: No
[2018-11-06] MEDS: DOCUSATE 100 MG CAPSULE PO ×2 (09:49→21:23)
[2018-11-06] MEDS: LISINOPRIL 5 MG TABLET 2.5 MG PO (09:49)
[2018-11-06] MEDS: CARVEDILOL 25 MG TABLET PO ×2 (09:50→21:23)
[2018-11-06] MEDS: SPIRONOLACTONE 25 MG TABLET 12.5 MG PO (09:51)
[2018-11-06] MEDS: ASPIRIN EC 81 MG TABLET PO (09:51)
[2018-11-06] MEDS: SODIUM CHLORIDE 0.9% FLUSH 10 ML IV ×3 (09:52→22:09)
--- NOTE | 2018-11-06 12:09 | PT.IIE ---
Surgical History (Last Updated 11/05/18 @ 14:47 by Evie Montes MD) Hx of CABG (Acute) Medical History (Last Updated 11/05/18 @ 14:46 by Evie Montes MD) CAD (coronary artery disease) (Acute) History of implanted metallic device (Acute) Paroxysmal atrial fibrillation (Acute) Physical Therapy Inpatient Evaluation/Re-Eval M1 PT/OT-IP Prior Functional Status Start: 11/06/18 09:01 Freq: NEEDED Status: Active Protocol: Document 11/06/18 11:20 AW (Rec: 11/06/18 12:08 AW [id number]) Medical Review Prior Functional Status Medical History Reviewed Yes Diet/Fluid Consistency Regular Communication Pt able to make needs known Mobility and Gait Pt was mod independent with heavy use of SPC for home and community distances. Activities of Daily Living and IADL's Pt was independent with all ADL's. Adult sons have been managing medications for approximately the past six weeks. Sons have been driving. Prior Functional Level (Other details) Pt's son, Bladimir, reports pt experiencing challenges with short term memory for the past 6 weeks. Social History Household Members spouse Living Arrangements House Number of Floors (Floors) Two Floors Number of Stairs To Enter/Railing? 5 CORNEL[place] with R rail ascending. 13 steps inside from main level to second floor. Pt accesses second floor regularly. 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 They both live locally and have been checking on pt and his spouse daily due to recent concerns for pt's short term memory. Pt lives with his spouse who has dementia. M2 PT-IP Current Condition Start: 11/06/18 09:01 Freq: NEEDED Status: Active Protocol: Document 11/06/18 11:20 AW (Rec: 11/06/18 12:08 AW [id number]) Physical Therapy Current Condition Current Condition Evaluation Date 11/06/18 Treatment Diagnosis speech abnormality, balance, TIA vs CVA Onset Date 11/05/18 Weight Bearing Status Weight Bearing Status Full Weight Bearing M3 PT-IP Subjective Start: 11/06/18 09:01 Freq: NEEDED Status: Active Protocol: Document 11/06/18 11:20 AW (Rec: 11/06/18 12:08 AW [id number]) Subjective Physical Therapy Visit Type Type Initial Evaluation Visit Start Time 10:42 Visit Stop Time 11:15 Total Visit Minutes 33 Number of BUTTON MAKER Visits 0 Physical Therapy Visit Comments Patient Comments Pt feels he is functioning typically other than slurred speech. Patient Goals Delvis would like to return home as soon as possible Therapy Pain Assessment Pain When Pain Assessed At Rest Pain Present Pain Present Denied Pain M4 PT-IP Mobility and Gait Start: 11/06/18 09:01 Freq: NEEDED Status: Active Protocol: Document 11/06/18 11:20 AW (Rec: 11/06/18 12:08 AW [id number]) PT-Transfer Assessment Sit to and From Stand Sit to and from Stand Standby Assistance Equipment Transfer Assistive Device Gait Belt,Front Wheeled Walker Transfers Transfer Destination Chair Transfer Technique Stand Step Pivot Transfer Ability Level of Assist Standby Assistance Comments Mobility Comments Pt was first encountered sitting in a chair. Transfer to standing using FWW required SBA. Gait Assessment Gait Gait Assistance Required: Standby Assistance,Contact Guard Assist Able to Maintain Weight Bearing Status Yes During Gait Assistive Devices Assistive Device Gait Belt,Straight Cane,Front Wheeled Walker Orthotic/Prosthetic Devices or Brace: No Gait Deviations General Gait Pattern Decreased Feet Clearance,Wide Based Gait Factors Limiting Gait Function Factors Limiting Gait Function Poor Balance,Poor Safety Awareness Comments Gait Comments Pt ambulated ~150 feet using FWW SBA. Also trialed ambulation with SPC which is typical for pt at baseline. With SPC, pt required CGA/SBA, demonstrating decreased balance and increased wide- based gait pattern. Pt's son, Bladimir, stated ambulation was consistent with baseline PT-Balance Assessment Sitting Balance and Reactions Static Sitting Balance Ability Good Dynamic Sitting Balance Ability Good Standing Balance and Reactions Static Standing Balance Ability Fair Dynamic Standing Balance Ability Fair Device Used FWW Comments Other Balance Tests/Deviations/Treatment Posterior loss of balance with : perturbations. Unable to assume or hold tandem stance without assistance. During ambulation, pt able to turn head right and left, but head nodding resulted in reduced gait speed and path deviation. M5 PT-IP Objective Assessments Start: 11/06/18 09:01 Freq: NEEDED Status: Active Protocol: Document 11/06/18 11:20 AW (Rec: 11/06/18 12:08 AW [id number]) Orientation Orientation/Cognition Level of Alertness Alert Orientation Name,Birthday,Place,Situation Language Function Ability Garbled Speech Safety Awareness Decreased Safety Awareness Memory Description Short Term Impaired Comments Short-term memory impaired per son visiting in room. Speech is slurred with onset ~24 hours ago, improving minimally . Gross Range of Motion Upper Extremity ROM Assessment Within Functional Limits Lower Extremity ROM Assessment Within Functional Limits Strength Upper Extremity Strength Assessment Within Functional Limits Lower Extremity Strength Assessment Within Functional Limits Coordination Assessment Gross Coordination Gross Coordination Impaired Assessment Finger to Nose Test Minimal Impairment Heel on Badillo Test Normal Performance Coordination Comments Slight dysmetria noted on finger to nose testing of the LUE with decreased speed and slight difficulty landing on target. Sensation Assessment Sensation Gross Sensation Right LE Impaired,Left LE Impaired Light Touch Impaired Comments Sensation Comments With eyes closed, pt unable to report light touch in stocking distribution up to proximal tibia. Muscle Tone Muscle Tone WNL Yes M6 PT-IP Treatment Start: 11/06/18 09:01 Freq: NEEDED Status: Active Protocol: Document 11/06/18 11:20 AW (Rec: 11/06/18 12:08 AW [id number]) Physical Therapy Treatment Education Education Provided Safety M7 PT-IP Assessment and Plan Start: 11/06/18 09:01 Freq: NEEDED Status: Active Protocol: Document 11/06/18 11:20 AW (Rec: 11/06/18 12:08 AW [id number]) PT Summary Assessment and Plan Potential Rehabilitation Potential Good Status of Condition at Evaluation Evolving Summary Impairments Balance,Transfers,Gait Assessment Summary Delvis is a 78 yo man admitted with stroke-like symptoms. He has a history of a fib, mechanical heart valve, and peripheral neuropathy affecting lower extremities. PLOF: Pt was modified independent, using a SPC for ambulation in household and community distances. He was independent with ADL's but his sons have been driving for him for the past 6 weeks. He reports just one fall in the last year; he was not injured. Adult children have been checking on him more frequently recently due to short term memory challenges and have been managing his medications. CLOF: Pt required SBA for transfers and gait with FWW. Gait with SPC required increased level of assist due to poor dynamic balance, but his son reports gait observed in therapy is consistent with pt's baseline. Pt has left tongue deviation and right-sided facial droop, slight dysmetria of left upper extremity, no pronator drift, no unilateral weakness. PT recommending discharge to home with increased usp care and outpatient physical therapy to address concerns with balance when medically cleared. Goals Bed Mobility Goal Independent Transfer Goal Independent Gait Goal Independent Gait Distance 500 Other Goals Pt will ascend/descend 13 steps SBA using R rail Frequency of Treatment Frequency Of Treatment Twice a Day Treatment Plan Physical Therapy Treatment Plan Transfer Training,Gait Training,Therapeutic Exercise, Balance Retraining,Discharge Planning,Neuromuscular Re-ed, Coordination Retraining,Manual Therapy Other Recommendations and Next Treatment focus on ambulation with least Focus restrictive assistive device and stairs Recommendations To Nursing Amount of Assist Needed Standby Assistance,1 Person Assist Discharge Recommendations PT Discharge Recommendations Home with Assistance, Outpatient PT
--- NOTE | 2018-11-06 14:26 | PT.IPTN ---
Physical Therapy Treatment Note M2 PT-IP Current Condition Start: 11/06/18 09:01 Freq: NEEDED Status: Active Protocol: Document 11/06/18 11:20 AW (Rec: 11/06/18 12:08 AW [id number]) Physical Therapy Current Condition Current Condition Evaluation Date 11/06/18 Treatment Diagnosis speech abnormality, balance, TIA vs CVA Onset Date 11/05/18 Weight Bearing Status Weight Bearing Status Full Weight Bearing M3 PT-IP Subjective Start: 11/06/18 09:01 Freq: NEEDED Status: Active Protocol: Document 11/06/18 14:11 CLB (Rec: 11/06/18 15:06 CLB [id number]) Subjective Physical Therapy Visit Type Type Treatment Note Visit Start Time 14:11 Visit Stop Time 14:26 Total Visit Minutes 15 Number of CLINICAL BUSINESS MANAGER Visits 1 Physical Therapy Visit Comments Patient Comments Pt willing to participate in therapy. M4 PT-IP Mobility and Gait Start: 11/06/18 09:01 Freq: NEEDED Status: Active Protocol: Document 11/06/18 14:11 CLB (Rec: 11/06/18 15:06 CLB [id number]) PT-Transfer Assessment Equipment Transfer Assistive Device Gait Belt,Front Wheeled Walker Transfers Transfer Destination Chair Transfer Technique Stand Step Pivot Transfer Ability Level of Assist Standby Assistance Gait Assessment Gait Gait Assistance Required: Standby Assistance,Contact Guard Assist Able to Maintain Weight Bearing Status Yes During Gait Assistive Devices Assistive Device Gait Belt,Straight Cane,Front Wheeled Walker Orthotic/Prosthetic Devices or Brace: No Gait Deviations General Gait Pattern Decreased Feet Clearance,Wide Based Gait Factors Limiting Gait Function Factors Limiting Gait Function Poor Balance,Poor Safety Awareness Comments Gait Comments Pt ambulated ~425ft. Pt started walking with walker then pt ambulated with cane. Pt required SBA with walker and CGA with cane and verbal cues for pacing especially while turning corners. Stair Climbing Assessment Evaluation Level of Assist On Stairs Standby Assistance,Contact Guard Assistance Devices Stair Climbing Assistive Devices Right Railing Technique/Endurance Stair Climbing Direction Ascend and Descend Stair Climbing Technique Step Over Step Number of Steps Climbed 3 Stair Climbing Set # Repetitions (reps) 4 Comments Stair Climbing Comments Pt able to climb stairs with right rail SBA-CGA. M5 PT-IP Objective Assessments Start: 11/06/18 09:01 Freq: NEEDED Status: Active Protocol: Document 11/06/18 11:20 AW (Rec: 11/06/18 12:08 AW [id number]) Orientation Orientation/Cognition Level of Alertness Alert Orientation Name,Birthday,Place,Situation Language Function Ability Garbled Speech Safety Awareness Decreased Safety Awareness Memory Description Short Term Impaired Comments Short-term memory impaired per son visiting in room. Speech is slurred with onset ~24 hours ago, improving minimally . Gross Range of Motion Upper Extremity ROM Assessment Within Functional Limits Lower Extremity ROM Assessment Within Functional Limits Strength Upper Extremity Strength Assessment Within Functional Limits Lower Extremity Strength Assessment Within Functional Limits Coordination Assessment Gross Coordination Gross Coordination Impaired Assessment Finger to Nose Test Minimal Impairment Heel on Badillo Test Normal Performance Coordination Comments Slight dysmetria noted on finger to nose testing of the LUE with decreased speed and slight difficulty landing on target. Sensation Assessment Sensation Gross Sensation Right LE Impaired,Left LE Impaired Light Touch Impaired Comments Sensation Comments With eyes closed, pt unable to report light touch in stocking distribution up to proximal tibia. Muscle Tone Muscle Tone WNL Yes M6 PT-IP Treatment Start: 11/06/18 09:01 Freq: NEEDED Status: Active Protocol: Document 11/06/18 11:20 AW (Rec: 11/06/18 12:08 AW [id number]) Physical Therapy Treatment Education Education Provided Safety M7 PT-IP Assessment and Plan Start: 11/06/18 09:01 Freq: NEEDED Status: Active Protocol: Document 11/06/18 14:11 CLB (Rec: 11/06/18 15:06 CLB [id number]) PT Summary Assessment and Plan Summary Assessment Summary Pt able to ambulate in burgess with cane ~350ft CGA with cues for pacing and during turns for safety. Pt improved with balance and stance during gait with cane. Pt able to climb 12 steps with R rail SBA-CGA. After speaking with PT oJy pt is appropriate to be seen by therapy once a day. Goals Bed Mobility Goal Independent Transfer Goal Independent Gait Goal Independent Gait Distance 500 Other Goals Pt will ascend/descend 13 steps SBA using R rail Frequency of Treatment Frequency Of Treatment Once a Day Treatment Plan Other Recommendations and Next Treatment ambulation with least Focus restrictive device. Recommendations To Nursing Amount of Assist Needed Standby Assistance,1 Person Assist Discharge Recommendations PT Discharge Recommendations Home with Assistance, Outpatient PT
--- NOTE | 2018-11-06 15:07 | CM.DANOTE ---
Addendum entered by Eileen Grey LPN 11/06/18 15:24: It is noted that pt has an appt that had been set up prior to this admission by PCP for a sleep study test: next week. Original Note: Discharge Planning/Care Management DCP: assessment: case received, EMR reviewed, confirmed with Dr. Boone that pt will be staying overnight. PT was able to see pt today. OT and REVIEW MANAGER will see him tomorrow. Met with pt and introduced self and role. Pt is a 78 year old male who admitted yesterday to care of hospitalist team. Payer: Medicare and [facility] PCP: Blossom Moran Pt is found sitting up in bedside chair, readily converses but speech and facial symetry notably impaired and, per pt, not his baseline. Pt confirms he has 3 sons that care very supportive: PORaúl is eldest son Bladimir who was present in room during PT Joy's session. Bladimir stated to Joy that pt seemed to be at his mobility baseline. PLF: functionally independent with basic mobility/use of SPC and basic ADLS. Assist from son's as noted in DCP template below. MRI: cannot be done per Dr. Montes's H&P as pt with mechanical heart valve. Admission status: OBS: confirmed by UR TERRELL Wilkins. DCP team will continue to follow tomorrow to assist with d/c issues and options. Advanced directive, confirm from FAMILY Start: 11/05/18 13:18 Freq: Q24H Status: Active Protocol: Document 11/05/18 13:18 WILMAN (Rec: 11/05/18 14:17 WILMAN [id number]) Advance Directive, confirm on record Time 12:30 Person contacted adelaide Garrison Copy received No Document 11/06/18 13:18 WILMAN (Rec: 11/06/18 14:26 WILMAN [id number]) Advance Directive, confirm on record Time 12:30 Person contacted adelaide Garrison Copy received No CM Discharge Assessment Start: 11/06/18 14:51 Freq: Status: Active Protocol: Document 11/06/18 14:52 ITV (Rec: 11/06/18 14:52 ITV [id number]) Discharge Planning Assessment Advance Directives? Yes History Provided By Medical Record Prior Living Arrangements House Household Members spouse Comment spouse has Document 09/08/19 15:03 ITV (Rec: 11/06/18 15:07 ITV [id number]) Discharge Planning Assessment Advance Directives? Yes History Provided By Patient,Medical Record Prior Living Arrangements House Household Members spouse Comment spouse has dementia per pt. Not officially diagnosed. Type of transporation used prior to Relies on Others admit Comment has three sons who all live nearby and assist with driving and medication management Is patient alert and oriented? Yes: some ? of recent cognitive loss per EMR Needs Assistance With Managing Medications DME Already Rented / Owned Cane Comment Has history of OUTPT PT at [facility] Updated in Patient Room with Yes name and ext. # of Ratings Analyst Review Status In Process
[2018-11-06] MEDS: WARFARIN 5 MG TABLET PO (17:38)
[2018-11-06] MEDS: ATORVASTATIN 20 MG TABLET PO (21:23)
[2018-11-06] MEDS: SENNOSIDES 8.6 MG TABLET 17.2 MG PO (21:23)
[2018-11-07] VITALS (8 sets, daily range): BP systolic 100–118; BP diastolic 66–89; PULSE 94–101; RESP 17–23; TEMP 36.3–36.7; O2SAT 95–99
[2018-11-07] MEDS: SODIUM CHLORIDE 0.9% FLUSH 10 ML IV ×2 (02:36→10:53)
--- NOTE | 2018-11-07 04:45 | DI.CT.S_ITS ---
PROCEDURE: CT HEAD/BRAIN WO CON INDICATIONS: CVA TECHNIQUE: Noncontrast 4.5 mm thick angled axial sections acquired from the foramen magnum to the vertex, with coronal and sagittal reformats. For radiation dose reduction, the following was used: automated exposure control, adjustment of mA and/or kV according to patient size. COMPARISON: None. FINDINGS: Image quality: Limited by patient motion artifact. CSF spaces: Basal cisterns are patent. No extra-axial fluid collections. The ventricles are diffusely prominent and disproportionate in size the sulci which could be due to central line loss versus normal pressure hydrocephalus. Brain: No intracranial bleeds or masses. There is cerebral volume loss for age, with resultant ventricular and sulcal prominence. There are periventricular and deep white matter chronic small vessel ischemic changes. Chronic, small lacunar infarcts are noted in the cerebellar hemispheres. There is intracranial internal carotid artery and vertebral arteries atherosclerosis. Skull and face: Calvarium and visualized facial bones appear intact, without suspicious lesions. Sinuses: Visualized sinuses and mastoids are clear. IMPRESSION: 1. No acute intracranial disease process. 2. Ventriculomegaly which can be due to central volume loss versus normal pressure hydrocephalus. Please correlate with clinical data. Dictated by: Rubi Reinoso MD, PhD on 11/07/2018 at 7:43 Approved by: Rubi Reinoso MD, PhD on 11/07/2018 at 7:46
[2018-11-07] MEDS: SPIRONOLACTONE 25 MG TABLET 12.5 MG PO (08:47)
[2018-11-07] MEDS: LISINOPRIL 5 MG TABLET 2.5 MG PO (08:47)
[2018-11-07] MEDS: ASPIRIN EC 81 MG TABLET PO (08:48)
[2018-11-07] MEDS: CARVEDILOL 25 MG TABLET PO (08:48)
[2018-11-07] MEDS: DOCUSATE 100 MG CAPSULE PO (08:48)
[2018-11-07] MEDS: FUROSEMIDE 20 MG TABLET PO (08:50)
--- NOTE | 2018-11-07 10:20 | ST.IPIE ---
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 Shine is a 78 year old male who was admitted for stroke like symptoms, specifically slurred speech. Head CT and repeat head CT were negative for acute stroke . Unable to have MRI due to mechanical valve. He lives at home with his in [place] and has assistance from his children who live nearby in the area and report they have noted some short term memory loss recently. For this reason , Mr. Shine no longer drives or manages finances. He does, report he does the cooking at home. Subjective Observations Sitting upright in the chair in his room. No family present . Oriented to place and situation, but stated the month was April and was not able to problem solve correct month given hints. Patient reports his children take care of his schedule and appointments. Evaluation Liquids Trialed Thin Solids Trialed Puree,Mechanical Soft,Regular Administration Type Self-Feeding Oral Impairment WFL Oral Phase Comments Oral mucosa was pink and moist . Oral cavity clean with no sign of debris/residue. Oral prep phase was within normal limits, no difficulty with bolus acceptance or mastication. No abnormal oral residue observed. Pharyngeal Impairment WFL Pharyngeal Phase Comments Soft palate elevated on phonation. Consistent coughing with sips of thin liquids via large opening straw in hospital cup. Patient reports he does not use straws at home , and did not cough during trials of thin via cup sip. Discussed bolus size of wide straw vs cup sips and recommended patient take single cup sips only during meals. No difficulty with solid textures observed. Findings Impressions Presence and extent of pharyngeal dysphagia cannot be fully evaluated without instrumental assessment; however, I suspect mild pharygneal dysphagia, likely pharyngeal residue with potential penetration/ aspiration during larger sips resulting in coughing. Symptoms decreased significantly with implementation of compensatory strategies- single cup sips, no straws. Lungs are clear and not concerning for aspiration pneumonia at this time. 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 Motor Speech Evaluation Start: 11/07/18 14:08 Freq: Status: Active Protocol: Document 11/07/18 14:08 TLC (Rec: 11/07/18 14:29 TLC [id number]) Motor Speech Evaluation Oral Motor Lips Function WFL Observation at rest Mild right droop Alternating pucker/retraction Mild discoordination Involuntary Movement none Tongue Function Moderate Impairment Protrusion Deviation to left Lateralization Mild-moderate discoordination Respiration/Phonation Diadochokinetic Rates P^ Quality Mild Impairment T^ Quality Mild Impairment K^ Quality Mild Impairment P^T^K^ Quality Mild Impairment Speech Intelligibility Phoneme Severity WFL Word Severity WFL Sentence Severity WFL Conversation Severity Mildly Impaired Awareness/Strategy Use Description Type of awareness/use Uses intermittently Findings Details Motor Speech Function Mild Impairment Assessment Details Assessment Speech was assessed informally during nonstandardized speaking tasks. Observed slurring and mild-moderate discoordination of speech suspecting of apraxia of speech vs. dysarthria (muscle weakness). Overall, speech is >80% intelligible in conversation with only a few errors related to articulatory imprecision. Rate of speech within functional limits, but somewhat slow. Voicing at baseline, per patient. Prognosis Rehabilitation Potential Good Recommendations Treatment Recommended Yes Therapy Recommendations Outpatient speech therapy if speech does not improve at time of discharge or if coughing during drinking persists or worsens with implementation of strategies. OT to complete cognitive screening given concern for safety due to short term memory loss.
--- NOTE | 2018-11-07 11:41 | OT.IP.EVAL ---
Past Medical History (Last Updated 11/05/18 @ 14:46 by Evie Montes MD) CAD (coronary artery disease) (Acute) History of implanted metallic device (Acute) Paroxysmal atrial fibrillation (Acute) Surgical History (Last Updated 11/05/18 @ 14:47 by Evie Montes MD) Hx of CABG (Acute) Occupational Therapy Inpatient Evaluation/Re-Eval M1 PT/OT-IP Prior Functional Status Start: 11/07/18 10:44 Freq: NEEDED Status: Active Protocol: Document 11/07/18 11:41 GERARD (Rec: 11/07/18 16:14 CANDE [id number]) Medical Review Prior Functional Status Medical History Reviewed Yes Diet/Fluid Consistency Regular Communication WNL Mobility and Gait Pt was mod independent with use of SPC in home and community. Activities of Daily Living and IADL's Pt was independent with all ADL's. Adult sons have been managing medications and finances for approximately the past six weeks as pt has had rapidly decreasing memory. Sons are provided transportation Prior Functional Level (Other details) Pt lives with who has dementia, but does not require any physical assist. Social History Household Members spouse Living Arrangements House Number of Floors (Floors) Two Floors Number of Stairs To Enter/Railing? 5 stairs to enter with R rail ascending and 13 stairs up to bedroom and bathroom Home Environment Standard Height Toilet,Walk in Shower Home Equipment Front Wheel Walker,Straight Cane,Grab Bars In Shower Employment Status Retired Additional Social History Comment Pt and both stand to shower and pt denies any falls at home. M2 OT-IP Current Condition Start: 11/07/18 10:44 Freq: Status: Active Protocol: Document 11/07/18 11:41 GERARD (Rec: 11/07/18 16:14 CANDE [id number]) Occupational Therapy Current Condition Current Condition Evaluation Date 11/07/18 Treatment Diagnosis garbled/slurred speech with suspected stroke Diagnosis Onset Date 11/05/18 Post Operative Precautions Other Precautions fall risk, moves quickly M3 OT- IP Subjective and Pain Start: 11/07/18 10:44 Freq: Status: Active Protocol: Document 11/07/18 11:41 GERARD (Rec: 11/07/18 16:14 GERARD [id number]) OT- Subjective Occupational Therapy Visit Type Type Initial Evaluation Visit Start Time 11:06 Visit Stop Time 11:41 Total Visit Minutes 35 Occupational Therapy Visit Comments Patient Comments My speech is still a little off. Patient/Caregiver Goals to go home today OT Pain Assessment Pain When Pain Assessed At Rest Pain Present Pain Present Denied Pain M4 OT- IP ADL's Start: 11/07/18 10:44 Freq: Status: Active Protocol: Document 11/07/18 11:41 PJClaudia (Rec: 11/07/18 16:14 [facility] [id number]) OT [id number] General Evaluation Self-Feeding Ability Independent Comments OT Self-Feeding Comments using R dominant hand OT ADL-Grooming General Evaluation Grooming Ability Independent Comments OT Grooming Comments hand washing standing at sink with cane OT ADL-Oral Care Comments Oral Care Comments no new deficits identified that would interfere OT ADL-Dressing General Eval Upper Body Dressing Ability Independent Lower Body Dressing Ability Independent Areas Needing Assistance Underpants/Brief,Socks OT ADL-Toileting General Evaluation Toileting Ability Independent OT ADL-Bathing Comments OT Bathing Comments did not occur, now deficits identified that would interfere; recommend shower seat for safety M5 OT- IP IADL's Start: 11/07/18 10:44 Freq: Status: Active Protocol: Document 11/07/18 11:41 GERARD (Rec: 11/07/18 16:14 [facility] [id number]) OT-Instrumental Activities of Daily Living Deficits IADL Deficits Identified Deficits Home Safety Awareness Awareness of Need for Assistance at Home Decreased Awareness Home Safety Comments adult sons check on pt/ daily Medication Management Medication Management Caregiver Provides Supervision Medication Management Comments son assists Money Management Money Management Caregiver Provides Supervision Money Management Comments son assists Meal Preparation Meal Preparation Comments pt states he and still do some simple meal preparation Administrative And Program Specialist Administrative And Program Specialist Comments pt and do thier own laundry; pt states he plans to hire mess attendant crew soon Driving Driving Caregiver Provides Assist Driving Comments pt no longer drives as sons had concerns about pt's abilities M6 OT- IP Functional Cognition Start: 11/07/18 10:44 Freq: Status: Active Protocol: Document 11/07/18 11:41 GERARD (Rec: 11/07/18 16:14 [facility] [id number]) Cognitive Factors Limiting Selfcare Function Cognitive Ability Level of Alertness Alert Patient Orientation Name,Birthday,Place,Situation Attention Span Ability Capable of Focused Attention, Capable of Sustained Attention Ability to Follow Commands Able to Follow One Step Commands Memory Description Immediate Impaired,Short Term Impaired Safety Awareness Underestimates Need for Assistance Problem Solving Ability Unable to Identify Errors, Needs Assist to Identify Solutions Executive Function Ability Unable to Remember Details Cognitive Tests SLUMS Pt scored 9/30 (norm is 27/30). Cognitive Comments Cognitive Assessment Comments Pt had difficulty with immediate, short term and working memory tasks, unable to do mental math and word generation is slow. Pt unable to place numbers or hands on clock drawing. Pt recalls 1/4 facts about short paragraph read to him. OT- Vision and Hearing OT- Hearing Assessment OT- Hearing Assessment WFL OT- Vision Assessment Visual Acuity Glasses All The Time Visual Attentiveness WFL Visual Emmanuel WFL Visual Spacial Neglect Not Applicable Vision Assessment Comments pt wears bifocals M7 OT- IP Mobility and Balance Start: 11/07/18 10:44 Freq: Status: Active Protocol: Document 11/07/18 11:41 PJ (Rec: 11/07/18 16:14 [facility] [id number]) OT-Transfer Assessment Sit to and From Stand Sit to and from Stand Standby Assistance Transfers Transfer Ability Independent Technique Transfer Destination Chair,Toilet Transfer Technique Stand Step Pivot Devices Transfer Assistive Devices Straight Cane Comments Mobility Comments no LOB noted OT- Gait Assessment Gait Gait Assistance Required: Standby Assistance Distance (Feet) 25 Assistive Devices Assistive Device Straight Cane Comments Gait Ability Comments pt ambulated in room with straight cane with no LOB noted OT- Balance Assessment Sitting Balance and Reactions Static Sitting Balance Ability Good Dynamic Sitting Balance Ability Good Standing Balance and Reactions Static Standing Balance Ability Good Dynamic Standing Balance Ability Good Comments Other Balance Tests/Deviations/Treatment during grooming at sink and : clothing management M8 OT- IP Objective Assessments Start: 11/07/18 10:44 Freq: Status: Active Protocol: Document 11/07/18 11:41 PJ (Rec: 11/07/18 16:14 [facility] [id number]) OT Gross Range of Motion Upper Extremity Range of Motion Assessment Within Functional Limits OT Strength Upper Extremity Strength Assessment Within Functional Limits Hand Cupola Tapper Helper Strength Hand Dominance Right Comments Strength Comments NO focal weakness noted OT- Coordination Assessment Upper Extremity Finger to Nose Test Left UE Impaired Finger Tapping Test Left UE Impaired Comments Coordination Comments L finger to nose and finger tapping mildly uncoordinated, pt had difficulty with 2 step commands OT-Muscle Tone Assessment Muscle Tone WNL Yes OT Sensation Assessment Comments Summary Comments WNL BUE Edema Edema Absent M9 OT- IP Assessment and Plan Start: 11/07/18 10:44 Freq: Status: Active Protocol: Document 11/07/18 11:41 PJClaudia (Rec: 11/07/18 16:14 [facility] [id number]) OT Summary Assessment and Plan Potential Analytic Complexity at Evaluation Low Summary Progress Towards Goals Safe For Discharge Assessment Summary Low complexity OT assessment completed on this 78 yr old man admitted with slurred speech. MRI negative; DX:TIA. Pt has significant cognitive deficits with SLUMS score of 9 /30 as described above. Per chart notes, his sons have noted decreased cognition over the last 6 weeks. Pt's BUE sensorimotor function appears WNL with no focal deficits noted. Pt appears to be at baseline level of function with self care skills and is independent with eating, grooming, dressing and toileting here except SBA for mobility with cane. No OT goals identified for this admission as pt appears to be at his baseline level of function. Recommend shower chair for safety in shower stall and that pt not use stove or oven due to memory deficits. Sons are assisting with his medications, finances and transportation. Pt plans to d/c home later today if clears P.T. Frequency of Treatment Frequency Of Treatment Discharge Discharge Recommendations OT Discharge Recommendations Home with Assistance Other Discharge Recommendations sons to check on pt/ daily Home Equipment Needs recommend shower seat
--- NOTE | 2018-11-07 16:00 | PC.NURSE ---
Addendum entered by Mone Barrett R.N. 11/07/18 18:13: All d/c instructions and scripts given to pt and son, both verbalized understanding. Pt to call Dr. Moran's office to schedule f/up visit at a time that is convenient for him. Pt escorted out via w/c with all personal belongings and d/c paperwork/script. Pt left in stable condition. Original Note: Assumed care pt at 1500. Pt sitting up in chair with chair alarm on visiting with son during bedside hand-off. Pt states he is hoping to d/c this afternoon. NIH 3. Denies pain or other discomfort. Calling appropriately for needs.
--- NOTE | 2018-11-07 16:08 | PM.DS.1 ---
History of Present Illness History of Present Illness Date Patient Seen: 11/07/18 Time Patient Seen: 16:08 Chief complaint: mild stroke ? Narrative: As per Evie Montes MD The patient is a 78-year-old male with a history of congestive heart failure, paroxysmal atrial fibrillation, aortic valve replacement who lives at home with his who has dementia. The patient has 3 sons in the area who check on him daily. The patient got up this morning and noted his speech was abnormal. When his son appeared he was also noticing that his father speech was abnormal. Speech was somewhat garbled and difficult to understand. The patient had no weakness in the arms or legs. He denies any headache blurred vision or double vision. The son brought the patient into the emergency room for evaluation. In the emergency room his NIH SS score was 3. Patient by report had an episode 6 weeks ago where he became confused, had some mild slurring of his speech, all symptoms of which resolved after 10 minutes. He was seen by his primary care physician Dr. moran evaluated and no further workup was indicated. Patient does have known paroxysmal atrial fibrillation, however according to the son he was in a regular rhythm most recently. He currently is undergoing a workup for possible obstructive sleep apnea. He has scheduled for sleep study next week. Patient has been noted to be hypoxic at night. In addition the patient has pulmonary edema. He does take Lasix 3 times weekly. Currently the patient is without complaints. He does have intermittent shortness of breath. He denies any chest pain. The patient is admitted to the hospital at this time for evaluation of possible CVA versus TIA. Discharge Providers Provider Date of admission: 11/05/18 11:34 Discharge Date: 11/07/18 Primary care physician: Blossom Moran MD Consults: 11/05/18 14:40 Consult to Occupational Therapy Evaluate & Treat Comment: Physician Instructions: Evaluate and treat Consult to Physical Therapy Evaluate & Treat Comment: Physician Instructions: Evaluate and Treat 11/05/18 14:41 Consult to Speech Therapy Evaluate & Treat Comment: Physician Instructions: Evaluate and treat Discharge provider: Oumar Gutierres DO Summary Hospital Course Discharge Diagnosis: 1.TIA 2. Paroxysmal atrial fibrillation, chronic, present on admission. 3. Mechanical valve 4. Coronary disease, remote history of coronary artery bypass graft 5. tachyarrythmia induced cardiomyopathy. 6. Hyperlipidemia. Hospital Course: 78-year-old male with a history of mechanical valve replacement on Coumadin who presents to the hospital with abrupt onset of speech abnormalities. Patient has mild dysarthria but no evidence of dysphagia. Given his history of paroxysmal atrial fibrillation, mechanical valve replacement he is at high risk for embolic CVA. The patient cannot have an MRI given his mechanical valve. Repeat CT showed no changes compared to the initial. As the etiology is most likely embolic we will defer carotid Doppler or CT angio of the neck. Patient will continue on Coumadin as there is no evidence of bleed on head CT. Patient was seen and evaluated by Physical therapy, Occupational therapy and speech therapy. Physical therapy recommended home PT, occupational therapy scored him as a 9/30 on cognitive evaluation but is otherwise able to do his ADLs, and recommended that he can go home as well. He was also referred for outpatient speech therapy. 1.TIA - with dysarthria, symptoms resolved. 2. Paroxysmal atrial fibrillation, currently in atrial fibrillation with a rate controlled. Patient has intermittently been in and out of AFib. For now as his rate is controlled will continue his Coreg. His TTE showed a reduced ejection fraction compared to prior exams, however this exam he was in AFib which has been transient. 3. Mechanical valve, continue Coumadin goal INR 2.5-3.5 4. Coronary disease, remote history of coronary artery bypass graft 5. 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 His echo today showed a reduced ejection fraction compared to prior exams, however this is likely in the setting of AFib, which is transient. Will continue Coreg furosemide lisinopril spironolactone and Coumadin. 6. Hyperlipidemia. Total cholesterol of 195 with LDL of 140. Begin atorvastatin. Status at Discharge Overall status at discharge: patient is back to baseline Time Spent with Patient Time spent: Greater than 30 minutes Exam Vital Signs (past 8 hours): - 11/07/18 08:15 11/07/18 10:52 11/07/18 12:00 Temperature 97.5 F L 97.7 F Pulse Rate 98 H 101 H Respiratory Rate 23 21 Blood Pressure 113/89 100/72 Pulse Oximetry 96 96 99 11/07/18 15:48 Temperature Pulse Rate Respiratory Rate Blood Pressure Pulse Oximetry 97 Oxygen Delivery Method Room Air Oxygen Flow Rate 0 Narrative Exam Narrative: GENERAL APPEARANCE: Well developed, well nourished, in no acute distress. SKIN: Inspection of the skin reveals no rashes, ulcerations or petechiae. HEENT: The sclerae were anicteric and conjunctivae were pink and moist. Extraocular movements were intact and pupils were equal, round with normal accommodation. External inspection of the ears and nose showed no scars, lesions, or masses. Lips, teeth, and gums showed normal mucosa. The oral mucosa, hard and soft palate, tongue and posterior pharynx were unremarkable. NECK: Supple and symmetric. There was no thyroid enlargement, and no tenderness, or masses were felt. CHEST: Normal AP diameter and normal contour without any kyphoscoliosis. LUNGS: Auscultation of the lungs revealed no wheezes, rhonchi, or rales. CARDIOVASCULAR: There was a regular rate and rhythm without any murmurs, gallops, rubs. Peripheral pulses were 2+ and symmetric. ABDOMEN: Soft and nontender with normal bowel sounds. No ascites was noted. MUSCULOSKELETAL: There was no tenderness or effusions noted. Muscle strength and tone were normal. EXTREMITIES: No cyanosis, clubbing or edema. NEUROLOGIC: Alert and oriented x 3. Normal affect. Gait was normal. Strength is +5/5 in the Upper Extremities and Lower Extremities Bilaterally. Sensation to touch was normal. Objective Labs Result Diagrams: 11/05/18 09:15 11/05/18 09:15 Discharge Plan Discharge Plan Patient Disposition: Home Discharge comment: You were admitted to the hospital for a TIA, which was likely due to your atrial fibrillation. You should continue your Coumadin. He further had an evaluation here which showed severe cognitive impairment with a score of 9/30. You will receive outpatient physical therapy and speech therapy. Your echocardiogram showed a reduced ejection fraction, however this is unreliable as your in atrial fibrillation during the study. 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 Discharge Med Rec/Prescriptions Prescriptions: New atorvastatin [Lipitor] 20 mg Tablet 20 mg PO BEDTIME 30 Days Qty: 30 RF: 0 Continued carvedilol 25 mg tablet 25 mg PO BID RF: 0 warfarin 5 mg tablet 5 mg PO DAILY RF: 0 spironolactone 25 mg tablet 12.5 mg PO DAILY RF: 0 furosemide 20 mg tablet 20 mg PO .three times a week RF: 0 lisinopril 2.5 mg tablet 2.5 mg PO DAILY RF: 0 Follow up/Referrals: Clone,Rehab Management [Physical Therapist] - Clone,Speech Therapist, [employer] [Speech Therapist] - Blossom Moran MD [Primary Care Provider] - Provider Discharge Instructions Diet: Diet as Tolerated Activity: No restrictions. Other treatments: Please disconnect stove at home per occupational therapy. Discharge Data Primary Care Provider: Blossom Moran Attending Provider: Evie Montes Admit Date/Time: 11/05/18 11:34 Quality VTE Deep Vein Thrombosis/Pulmonary Embolism Present on Admission: No
--- NOTE | 2018-11-07 16:32 | CM.DPC ---
Patient plan/wish is to discharge home. Denies needing HH - but requests thoughts about care to assist with ADLs. INP provided patient with Senior Resource Guide.
[2018-11-07] MEDS: WARFARIN 5 MG TABLET PO (17:34)
== END 2018-11-07 18:10 | disposition home or self-care (01) ==
LOC: ED 11:01 → AC 11:34
PROVIDERS: Admitting Provider Internal Medicine; Emergency Provider Emergency Medicine; PCP Internal Medicine; Visit Provider Internal Medicine
DX: G45.9 Transient cerebral ischemic attack, unspecified (principal); R29.818 Other symptoms and signs involving the nervous system; R47.1 Dysarthria and anarthria; Z79.01 Long term (current) use of anticoagulants; I48.0 Paroxysmal atrial fibrillation; I25.10 Atherosclerotic heart disease of native coronary artery without angina pectoris; I42.8 Other cardiomyopathies
CPT/HCPCS: 36415; 36591; 70450; 71045; 80053; 80061; 80305; 81003; 84484; 85025; 85610; 85730; 92522; 92610; 93005; 93041; 93306; 96360; 96361; 97116; 97162; 97165; 97530; 99283; 99285; G0378

== ENCOUNTER → 2019-04-19 20:27 | Outpatient (ROUT) | payer MEDICARE, OTHER, SELFPAY ==
[2018-11-05 12:14] VITALS: BMI 22.6
[2019-04-19 21:09] LABS: Alanine Aminotransferase 23 IU/L (<50); Albumin 4.2 g/dL (3.5-5.0); Albumin Globulin Ratio 1.2 (1.0-2.8); Alkaline Phosphatase 60 U/L (38-126); Aspartate Aminotransferase 29 IU/L (17-59); BUN Creatinine Ratio 25.5 (6-22); Blood Urea Nitrogen 28 mg/dL (9-20); Calcium 9.7 mg/dL (8.4-10.2); Carbon Dioxide 28 mmol/L (22-32); Chloride 101 mmol/L (98-107); Cholesterol 144 mg/dL (140-199); Estimated Glomerular Filt Rate > 60.0 mL/min (>60); Globulin 3.5 g/dL (1.7-4.1); Glucose 94 mg/dL (80-110); HDL Cholesterol 31 mg/dL (40-60); HEMOLYSIS < 15 (0-50); LDL Cholesterol Calculated 84 mg/dL (<100); Potassium 4.2 mmol/L (3.4-5.1); Sodium 138 mmol/L (137-145); Total Protein 7.7 g/dL (6.3-8.2); Triglycerides 143 mg/dL (35-150)
== END ==
PROVIDERS: PCP Internal Medicine; Visit Provider Internal Medicine
DX: E78.5 Hyperlipidemia, unspecified (principal); I10 Essential (primary) hypertension
CPT/HCPCS: 80053; 80061

== ENCOUNTER → 2019-09-18 15:32 | Outpatient (CLI) | payer MEDICARE, SELFPAY ==
[2018-11-05 12:14] VITALS: BMI 22.6
[2019-09-18 15:52] LABS: RBC Urine None Seen (0-5/HPF)
[2019-09-18 17:46] LABS: Add Manual Diff / Slide Review NO; Basophils Absolute Auto 100 /uL (0-100); Basophils Percent Auto 0.6 % (0-2); Eosinophils Absolute Auto 300 /uL (0-450); Eosinophils Percent Auto 3.6 % (2-4); Hematocrit 32.4 % (41-53); Hemoglobin 10.9 g/dL (13.5-17.5); Lymphocytes Absolute Auto 1100 /uL (1100-4500); Lymphocytes Percent Auto 13.8 % (25-40); Mean Corpuscular HGB Conc 33.6 % (30-36); Mean Corpuscular Hemoglobin 31.6 PG (26-34); Mean Corpuscular Volume 93.9 fL (80-100); Monocytes Absolute Auto 900 /uL (0-900); Monocytes Percent Auto 11.3 % (3-14); Neutrophils Absolute Auto 5900 /uL (1500-7000); Neutrophils Percent Auto 70.7 % (50-75); Platelet Count 174 X10^3/uL (150-400); Red Blood Cell Count 3.45 X10^6/uL (4.5-5.9); Red Cell Distribution Width 15.1 % (11.6-14.8); White Blood Cell Count 8.3 X10^3/uL (4.5-11.0)
[2019-09-18 18:41] LABS: Alanine Aminotransferase 25 IU/L (<50); Albumin 3.8 g/dL (3.5-5.0); Albumin Globulin Ratio 1.2 (1.0-2.8); Alkaline Phosphatase 66 U/L (38-126); Aspartate Aminotransferase 39 IU/L (17-59); BUN Creatinine Ratio 22.3 (6-22); Bilirubin Total 1.6 mg/dL (0.2-1.3); Blood Urea Nitrogen 21 mg/dL (9-20); Calcium 9.5 mg/dL (8.4-10.2); Carbon Dioxide 24 mmol/L (22-32); Chloride 99 mmol/L (98-107); Estimated Glomerular Filt Rate > 60.0 mL/min (>60); Globulin 3.2 g/dL (1.7-4.1); Glucose 94 mg/dL (80-110); HEMOLYSIS < 15 (0-50); Potassium 4.2 mmol/L (3.4-5.1); Sodium 132 mmol/L (137-145)
[2019-09-18 19:40] LABS: Appearance Urine UA CLEAR; Bilirubin Urine UA NEGATIVE (NEGATIVE); Color Urine UA YELLOW; Glucose Urine UA NEGATIVE (Negative); Ketones Urine UA NEGATIVE (NEGATIVE); Leukocyte Esterase Urine UA NEGATIVE (NEGATIVE); Nitrite Urine UA NEGATIVE (Negative); Occult Blood Urine UA NEGATIVE (Negative); Protein Urine UA NEGATIVE (Negative); Urobilinogen Urine UA 0.2 E.U./dL (0.2); pH Urine UA 5.5 (4.5-8.0)
[2019-09-18 20:18] LABS: Bacteria Urine Occasional (0-1); Squamous Epithelial Cell Urine 0-1 /HPF (0-5/HPF); WBC Urine 0-1/HPF (0-5/HPF)
[2019-09-19 13:05] LABS: Iron 41 ug/dL (49-181)
[2019-09-19 14:12] LABS: Ferritin 146 ng/mL (18-464)
[2019-09-19 20:04] LABS: Folate 10.9 ng/mL (2.76-20.0); Vitamin B12 925 pg/mL (239-931)
== END ==
PROVIDERS: PCP Internal Medicine; Referring Provider Internal Medicine; Visit Provider Internal Medicine
DX: R53.1 Weakness (principal); R32 Unspecified urinary incontinence; D64.9 Anemia, unspecified
CPT/HCPCS: 36415; 80053; 81001; 82607; 82728; 82746; 83540; 85025; 87086

== ENCOUNTER → 2019-09-21 12:55 | Outpatient (CLI) | payer MEDICARE, OTHER, SELFPAY ==
[2018-11-05 12:14] VITALS: BMI 22.6
--- NOTE | 2019-09-21 | DI.CT.S_ITS ---
PROCEDURE: CT HEAD/BRAIN WO CON INDICATIONS: RIGHT SIDED WEAKNESS TECHNIQUE: Noncontrast 4.5 mm thick angled axial sections acquired from the foramen magnum to the vertex, with coronal and sagittal reformats. For radiation dose reduction, the following was used: automated exposure control, adjustment of mA and/or kV according to patient size. COMPARISON: [facility], CT, CT HEAD/BRAIN WO CON, 11/07/2018, 0:55. FINDINGS: Image quality: Excellent. CSF spaces: Basal cisterns are patent. No extra-axial fluid collections. The ventricles are prominent in relation to gyral and sulcal atrophy. It is unchanged. Brain: No intracranial bleeds. Posterior fossa arachnoid cyst is unchanged. There is cerebral volume loss for age, with resultant ventricular and sulcal prominence. There are periventricular and deep white matter chronic small vessel ischemic changes. There is intracranial internal carotid artery atherosclerosis. Old lacunar ischemia or is noted within the cerebellar hemispheres. Skull and face: Calvarium and visualized facial bones appear intact, without suspicious lesions. Sinuses: Visualized sinuses and mastoids are clear. IMPRESSION: 1. No acute intracranial process. 2. Moderate atrophy and chronic microvascular ischemic changes. 3. Prominent ventricular system in relation dural sulcal atrophy. This could be related to central atrophy pattern versus normal pressure hydrocephalus. It is unchanged compared to prior exam. Further evaluation is recommended as indicated. Dictated by: Deborah Kaur M.D. on 09/21/2019 at 13:29 Approved by: Deborah Kaur M.D. on 09/21/2019 at 13:31
== END ==
PROVIDERS: PCP Internal Medicine; Referring Provider Internal Medicine; Visit Provider Internal Medicine
DX: R53.1 Weakness (principal); G93.0 Cerebral cysts; I65.29 Occlusion and stenosis of unspecified carotid artery
CPT/HCPCS: 70450

== ENCOUNTER → 2019-11-15 15:45 | Outpatient (ROUT) | payer MEDICARE, OTHER, SELFPAY ==
[2018-11-05 12:14] VITALS: BMI 22.6
[2019-11-15 16:43] LABS: Hematocrit 35.7 % (41-53); Hemoglobin 11.8 g/dL (13.5-17.5); Mean Corpuscular HGB Conc 33.2 % (30-36); Mean Corpuscular Hemoglobin 31.1 PG (26-34); Mean Corpuscular Volume 93.7 fL (80-100); Red Blood Cell Count 3.81 X10^6/uL (4.5-5.9); Red Cell Distribution Width 15.9 % (11.6-14.8); White Blood Cell Count 9.2 X10^3/uL (4.5-11.0)
== END ==
PROVIDERS: PCP Internal Medicine; Visit Provider Internal Medicine
DX: D64.9 Anemia, unspecified (principal)
CPT/HCPCS: 85027